=== PATIENT | female | born 1970 | race Caucasian/White ===

== ENCOUNTER 2017-07-18 10:42 | Outpatient (CLI) | payer OTHER | END 2017-07-18 10:43 | LOC: RT 10:42 | PROVIDERS: ATTEND Family Medicine | DX: R55 Syncope and collapse (principal) | CPT/HCPCS: 93225 ==

== ENCOUNTER 2017-07-24 11:12 | Outpatient (CLI) | payer OTHER | END 2017-07-24 11:13 | LOC: RT 11:12 | PROVIDERS: ATTEND Family Medicine | DX: R55 Syncope and collapse (principal) | CPT/HCPCS: 93270 ==

== ENCOUNTER 2017-08-01 14:39 | Outpatient (CLI) | payer OTHER | END 2017-08-01 14:41 | LOC: CARD 14:39 | PROVIDERS: ATTEND Internal Medicine Cardiovascular Disease | DX: R55 Syncope and collapse (principal) | CPT/HCPCS: 99213 ==

== ENCOUNTER 2017-08-15 10:25 | Outpatient (CLI) | payer OTHER | END 2017-08-15 10:26 | LOC: CARD 10:25 | PROVIDERS: ATTEND Internal Medicine Cardiovascular Disease | DX: R55 Syncope and collapse (principal); R53.83 Other fatigue; R51 Headache | CPT/HCPCS: 99213 ==

== ENCOUNTER 2017-08-15 14:28 | Outpatient (CLI) | payer OTHER | END 2017-08-15 14:30 | LOC: LAB 14:28 | PROVIDERS: ATTEND Internal Medicine Cardiovascular Disease | DX: R55 Syncope and collapse (principal) | CPT/HCPCS: 36415; 84443 ==

== ENCOUNTER 2017-09-20 14:23 | Outpatient (CLI) | payer OTHER | END 2017-09-20 14:30 | LOC: LAB 14:23 | PROVIDERS: ATTEND Family Medicine | DX: Z00.00 Encounter for general adult medical examination without abnormal findings (principal) | CPT/HCPCS: 36415; 80061 ==